=== PATIENT | male | born 1940 | race Caucasian/White ===

== ENCOUNTER 2020-07-02 18:22 | Inpatient (IN) | payer MEDICARE, OTHER ==
[~2020-07-02] VITALS: Ht 188 cm; Wt 98.0 kg
[2020-07-02 18:32] VITALS: BP 200/96
[2020-07-02] MEDS ORDERED: BACLOFEN 10MG T10 MG PO (18:49)
[2020-07-02] MEDS ORDERED: CARVEDILOL12.5 MG PO (18:50)
[2020-07-02] MEDS ORDERED: LEVOTHYROXINE75 MCG PO (18:51)
[2020-07-02 19:24] LABS: ABSOLUTE LYMPHOCYTES 0.5 thou/uL (0.8-5.3); ABSOLUTE MONOCYTES 0.6 thou/uL (0.0-1.2); ABSOLUTE NEUTROPHILS 3.8 thou/uL (1.6-8.1); BASOPHILS 0.5 %; EOSINOPHILS 0.4 %; HEMATOCRIT 29.7 % (42.0-52.0); HEMOGLOBIN 10.1 gm/dL (14.0-18.0); LYMPHOCYTES 10.8 %; MCH 32.2 pg (26.0-34.0); MCV 94.8 fL (80.0-100.0); MONOCYTES 12.6 %; MPV 7.5 fl. (7.2-11.1); NUCLEATED RBCS 0 /100WBC; PLATELET COUNT* 175 thou/uL (150-400); POLYS 75.7 %; RBC 3.13 mil/uL (4.50-6.00); RDW-CV 19.2 % (10.5-14.5); WBC 5.1 thou/uL (4.0-11.0)
[2020-07-02 19:34] LABS: CALCIUM 8.8 mg/dL (8.5-10.1); CREATININE 8.7 mg/dL (0.6-1.3); POTASSIUM 4.8 mmol/L (3.5-5.1)
[2020-07-02 19:35] LABS: APTT 25.6 Seconds (25.0-31.3); PROTIME 10.7 Seconds (9.20-11.50)
[2020-07-02 19:44] LABS: ALBUMIN 3.6 g/dL (3.4-5.0); TOTAL BILIRUBIN 0.4 mg/dL (<0.1-1.0)
[2020-07-02 19:51] LABS: URINE BILIRUBIN NEGATIVE (Negative); URINE BLOOD TRACE (Negative); URINE CLARITY CLEAR; URINE COLOR YELLOW; URINE GLUCOSE-RANDOM TRACE (Negative); URINE KETONES NEGATIVE (Negative); URINE LEUKOCYTES-REFLEX NEGATIVE (Negative); URINE NITRITE-REFLEX NEGATIVE (Negative); URINE PROTEIN 2+ (Negative); URINE UROBILINOGEN 0.2 E.U./dl (0.2-1.0)
[2020-07-02 19:56] LABS: SQUAMOUS 4-10 Moderate /LPF (0-3); URINE RBC 0-2 Rare /HPF (0-2); URINE WBC-REFLEX 0-5 Rare /HPF (0-5)
[2020-07-02 19:57] LABS: BACTERIA-REFLEX 1-9 Few /HPF (None Seen); CASTS None Seen /LPF (None Seen); CRYSTALS None Seen /LPF (None Seen); MUCUS None Seen strn/LPF (None Seen)
[2020-07-02 23:07] LABS: BE 3.4 mmol/L (-2 to +3); PCO2 43.9 mmHg (35.0-45.0); pH 7.426 (7.340-7.450)
[2020-07-02 23:10] LABS: PO2 140.5 mmHg (75.0-100.0)
[2020-07-02 23:27] LABS: AMMONIA 14 umol/L (11-32)
[2020-07-03 01:52] VITALS: BP 143/77
--- NOTE | 2020-07-03 11:02 | EKG ---
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 07/03/20 1102 1829 1829 Mirza Jimenez MD, [facility] /EPI
[2020-07-03] MEDS ORDERED: FAMOTIDINE 10 M10 MG PO (11:13)
[2020-07-03] MEDS ORDERED: LIPITOR40 MG PO (11:14)
[2020-07-03] MEDS ORDERED: CARVEDILOL25 MG PO (11:14)
[2020-07-03] MEDS ORDERED: ASA81BEC PO (11:14)
[2020-07-03] MEDS ORDERED: DIALYVITE 8000.8 M1 PO (11:15)
[2020-07-03] MEDS ORDERED: FEXOFENADINE-P1 EACH PO (11:15)
[2020-07-03] MEDS ORDERED: ISOSORBIDE MONO60 M1 PO (11:16)
[2020-07-03] MEDS ORDERED: PRESERVISION A1 EAC2 PO (11:17)
[2020-07-03] MEDS ORDERED: NITROSTAT0.4 M1 SUBLING (11:17)
[2020-07-03] MEDS ORDERED: RENVELA800 MG PO (11:18)
[2020-07-03] MEDS ORDERED: STIOLTO RESPIMAT4 GM INH (11:19)
[2020-07-03] MEDS ORDERED: TAMSULOSIN HCL0.4 MG PO (11:19)
[2020-07-03] MEDS ORDERED: TUMS300 MG PO (11:19)
[2020-07-03] MEDS ORDERED: ROXIFOL-D TA500 UNIT PO (11:20)
[2020-07-03 12:36] VITALS: BP 139/54
[2020-07-03 16:32] VITALS: BP 146/64
[2020-07-03 20:00] VITALS: BP 176/79
[2020-07-04] VITALS: BP 168/68
[2020-07-04 04:15] VITALS: BP 178/75
[2020-07-04 05:27] LABS: ABSOLUTE LYMPHOCYTES 0.6 thou/uL (0.8-5.3); ABSOLUTE MONOCYTES 0.6 thou/uL (0.0-1.2); ABSOLUTE NEUTROPHILS 4.7 thou/uL (1.6-8.1); BASOPHILS 0.6 %; EOSINOPHILS 0.1 %; HEMATOCRIT 34.3 % (42.0-52.0); HEMOGLOBIN 11.5 gm/dL (14.0-18.0); LYMPHOCYTES 9.9 %; MCH 32.4 pg (26.0-34.0); MCHC 33.5 g/dL (28.0-37.0); MCV 96.5 fL (80.0-100.0); MONOCYTES 10.4 %; MPV 7.3 fl. (7.2-11.1); NUCLEATED RBCS 0 /100WBC; PLATELET COUNT* 175 thou/uL (150-400); RBC 3.56 mil/uL (4.50-6.00); RDW-CV 19.6 % (10.5-14.5); WBC 5.9 thou/uL (4.0-11.0)
[2020-07-04 06:16] LABS: CALCIUM 9.5 mg/dL (8.5-10.1); CREATININE 7.5 mg/dL (0.6-1.3); POTASSIUM 4.6 mmol/L (3.5-5.1)
[2020-07-04 08:15] VITALS: BP 114/78
--- NOTE | 2020-07-04 13:25 | CON ---
[address] [address] CONSULTATION Name: QUIQUE KRAUS Room: [address] IN M.R.#: [id number] Admission: 07/02/20 Attend Phys: Valeriy Tellez MD Discharge: Date of : 44 Report #: [id number] THIS REPORT FOR: //name// cc: Sammie Lee MD, Jane T. MD ~ THIS REPORT FOR: //name// CC: Valeriy Lee DATE OF SERVICE: 07/03/2020 REASON FOR CONSULTATION: This is a consultation obtained by Dr. Tellez for end-stage renal disease to provide dialysis during the hospital stay. HISTORY OF PRESENT ILLNESS: The patient is a 79-year-old gentleman seen in the ER. He is very confused and unable to answer any questions for me. He has been sedated with Ativan and Haldol. I spoke to the patient's personally. The patient goes to hemodialysis at the [facility] under the care of Dr. Nelson. He dialyzes on a Saturday, Saturday, Saturday schedule. He dialyzed fairly well on Saturday without any complications. He has been doing fairly well except for having hiccups over the past few days and for which he was given baclofen, he took around 4-5 doses of that medication. Yesterday afternoon, his noticed he was getting more and more confused. He was brought into the hospital. According to the admission history and physical, the patient was alert and oriented at this time, but became more confused and agitated overnight and has required sedation medications. CT of the head and CT of the chest and abdomen are negative. He does not seem to have any focal signs of infection by clinical exam. His labs were also reviewed. He is not requiring significant amounts of oxygen. PAST MEDICAL HISTORY: Significant for end-stage renal disease, on hemodialysis Saturday, Saturday and Saturday schedule; hypertension; history of prostatectomy; and history of hiccups for which he required baclofen recently. HOME MEDICATIONS: The only list of medications that I have his baclofen, carvedilol, and levothyroxine. PERSONAL, SOCIAL AND FAMILY HISTORY: Reviewed. No smoking, no alcohol. REVIEW OF SYSTEMS: Apparently, no fevers, rigors or chills. He did have 2 falls recently. His reports a recent new medication baclofen. No cough, no fever, no chills. No abdominal pain, diarrhea, nausea or vomiting, etc. PHYSICAL EXAMINATION: GENERAL: He is sedated. He is having involuntary movements [place] [address] CONSULTATION Name: QUIQUE KRAUS Room: [address] IN [facility]#: [id number] Admission: 07/02/20 Attend Phys: Valeriy Tellez MD Discharge: Date of : 44 Report #: [id number] as he tries to pick on his sheet. VITAL SIGNS: His blood pressure is 143/77, his pulse rate is 59, and he has 100% saturation on 2 liters oxygen. HEENT: His mucous membranes are dry. LUNGS: Diminished, but clear. HEART: Regular S1, S2. ABDOMEN: Soft. EXTREMITIES: Show no edema. He has a left upper arm brachiobasilic graft with a good bruit to it. LABORATORY DATA: White count 5.1 and hemoglobin is 10.1. Sodium was 130, potassium 4.8, chloride 93, bicarbonate 30, BUN is 61, and creatinine is 8.7. AST and ALT normal. Alkaline phosphatase is 73. Albumin is 3.6. Urinalysis shows 2+ protein, but no signs of any significant UTI. Urine tox screen was not done. Acetone was negative. COVID is negative. Blood gas, pH 7.4, pCO2 of 43, pO2 of 140 and bicarbonate is 29. IMAGING STUDIES: CT head, CT chest and CT abdomen noncontributory. Chest x-ray shows right hilar fullness. ASSESSMENT: 1. End-stage renal disease. 2. Altered mental status, recent start of baclofen. 3. Hypothyroidism. 4. Hypertension. 5. Left upper arm brachiobasilic graft. PLAN: 1. End-stage renal disease. The patient is confused, but he also did get heavy sedation medications last night. The altered mental status presently could be secondary to the medications and possibly the effect of baclofen . 2. Baclofen is dialyseable. will arrange for urgent dialysis todayand then tomm morning on his regular scheduled time 3. Monitor closely for now. Discussed in detail with the ER and the nursing staff. <ELECTRONICALLY SIGNED> By: Norberto Santiago MD 07/04/20 1325 0822 [id number] Santiago MD /nt
--- NOTE | 2020-07-04 14:56 | EKG ---
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
[2020-07-04 20:00] VITALS: BP 191/88
[2020-07-05 04:30] VITALS: BP 197/89
[2020-07-05 05:10] LABS: ABSOLUTE BASOPHILS 0.1 thou/uL (0.0-0.2); ABSOLUTE LYMPHOCYTES 1.2 thou/uL (0.8-5.3); ABSOLUTE NEUTROPHILS 4.7 thou/uL (1.6-8.1); BASOPHILS 1.4 %; EOSINOPHILS 0.3 %; HEMATOCRIT 37.5 % (42.0-52.0); HEMOGLOBIN 12.7 gm/dL (14.0-18.0); MCH 32.6 pg (26.0-34.0); MCHC 33.9 g/dL (28.0-37.0); MCV 96.1 fL (80.0-100.0); MONOCYTES 13.9 %; MPV 7.4 fl. (7.2-11.1); NUCLEATED RBCS 0 /100WBC; PLATELET COUNT* 196 thou/uL (150-400); POLYS 67.4 %; RDW-CV 20.5 % (10.5-14.5); WBC 6.9 thou/uL (4.0-11.0)
[2020-07-05 05:13] LABS: APTT 26.6 Seconds (25.0-31.3); INR 1.1; PROTIME 11.5 Seconds (9.20-11.50)
[2020-07-05 05:14] LABS: ALBUMIN 3.7 g/dL (3.4-5.0); CALCIUM 9.4 mg/dL (8.5-10.1); CREATININE 6.8 mg/dL (0.6-1.3); POTASSIUM 4.9 mmol/L (3.5-5.1); TOTAL BILIRUBIN 0.5 mg/dL (<0.1-1.0); TOTAL PROTEIN 7.7 g/dL (6.4-8.2)
[2020-07-05 06:41] LABS: ANISOCYTOSIS 1+; PLATELET ESTIMATE ADEQUATE
[2020-07-05 08:00] VITALS: BP 218/101
[2020-07-05 13:33] VITALS: BP 129/72
[2020-07-05 13:43] LABS: CSF CLARITY CLEAR; CSF COLOR COLORLESS; VOLUME 8 ml
[2020-07-05 13:53] LABS: CSF GLUCOSE 74 mg/dl (40-70); CSF PROTEIN 142.8 mg/dl (15-45)
[2020-07-05 14:18] LABS: CSF RBC 18 /mm3; CSF WBC 3 /mm3 (0-10)
[2020-07-05 16:00] VITALS: BP 173/85
[2020-07-05 20:00] VITALS: BP 184/80
[2020-07-06] VITALS: BP 159/71
[2020-07-06 04:00] VITALS: BP 182/76
[2020-07-06 05:14] LABS: ABSOLUTE LYMPHOCYTES 0.9 thou/uL (0.8-5.3); ABSOLUTE MONOCYTES 0.8 thou/uL (0.0-1.2); ABSOLUTE NEUTROPHILS 4.1 thou/uL (1.6-8.1); BASOPHILS 0.8 %; EOSINOPHILS 0.6 %; HEMATOCRIT 33.3 % (42.0-52.0); HEMOGLOBIN 11.2 gm/dL (14.0-18.0); LYMPHOCYTES 14.8 %; MCH 32.2 pg (26.0-34.0); MCHC 33.6 g/dL (28.0-37.0); MCV 96.1 fL (80.0-100.0); MONOCYTES 13.7 %; MPV 7.5 fl. (7.2-11.1); NUCLEATED RBCS 0 /100WBC; PLATELET COUNT* 177 thou/uL (150-400); POLYS 70.1 %; RBC 3.46 mil/uL (4.50-6.00); RDW-CV 20.7 % (10.5-14.5); WBC 5.9 thou/uL (4.0-11.0)
[2020-07-06 05:30] LABS: CALCIUM 9.2 mg/dL (8.5-10.1); POTASSIUM 5.1 mmol/L (3.5-5.1)
[2020-07-06 05:36] LABS: CREATININE 9.6 mg/dL (0.6-1.3)
[2020-07-06 05:46] LABS: ALBUMIN 3.4 g/dL (3.4-5.0); CREATININE 9.7 mg/dL (0.6-1.3); TOTAL BILIRUBIN 0.5 mg/dL (<0.1-1.0); TOTAL PROTEIN 6.8 g/dL (6.4-8.2)
[2020-07-06 08:00] VITALS: BP 188/80
[2020-07-06 08:03] LABS: ANISOCYTOSIS 2+; PLATELET ESTIMATE ADEQUATE; POLYCHROMASIA 1+
[2020-07-06 16:00] VITALS: BP 156/76
[2020-07-06 19:40] VITALS: BP 159/80
[2020-07-07] VITALS (7 sets, daily range): BP systolic 101–125; BP diastolic 50–66
--- NOTE | 2020-07-07 18:46 | EEG ---
[address] [address] EEG STUDY REPORT Name: QUIQUE KRAUS Room: [address] IN M.R.#: [id number] Admission: 07/02/20 Attend Phys: Valeriy Tellez MD Discharge: Date of : 44 Report #: [id number] THIS REPORT FOR: //name// CC: Valeriy Arellanomundo DATE OF SERVICE: 07/04/2020 TECHNIQUE: This patient's EEG was done by placing the electrode by standard 10-20 system of electrode placement. Both referential and sequential montages were used for recording. Background activity in this patient is very disorganized and poorly formed that goes around 7 Hz and 30 microvolt. A sharper activity appeared to be present, sometime it is frontally predominant and other time it does not appear to be. IMPRESSION: This is a severely abnormal EEG consistent with encephalopathy. Superimposed seizures cannot be excluded. Finding is nonspecific and therefore, clinical correlation is recommended. I called the patient's again. I discussed with her the EEG. I discussed with her that repeat CT is also okay. I also discussed with her that the temperature is 101 degrees now. I recommended spinal tap. She did not want to proceed with the spinal tap, but subsequently she said she agreed with it and she will be in the hospital tetryl blender operator and let the nurses know if they want to proceed with spinal tap or not. I called Dr. White, the hospitalist clinical nutritionist. I discussed the patient with him. I discussed with him that this patient needs an ID consult, but no ID physician comes here. The option is to transfer him to a facility where ID is there of start him on DIE PRESSER penetrating antibacterial and if cleared by Nephrology, on IV acyclovir. He is going to look into that and take care of that. I did give him one dose of Keppra because there may be some seizure activity there. I also gave him thiamine. I did discuss with the that she has an option of getting transferred to a facility where Infectious Disease facilities are available and she said she will think about it. I think the patient's encephalopathy is because of infection rather than any medication overdose. I did ask them to hold the heparin, so that spinal tap can be done. More than 35 minutes of time was spent taking care of this patient today and majority was spent counseling and coordinating. <ELECTRONICALLY SIGNED> By: Dominic Mejia MD 07/07/206 24 38Dominic Mejia MD /nt
[2020-07-08 04:00] VITALS: BP 133/86; BP 137/84
[2020-07-08 06:03] LABS: CALCIUM 8.1 mg/dL (8.5-10.1); CREATININE 9.9 mg/dL (0.6-1.3); POTASSIUM 4.4 mmol/L (3.5-5.1)
[2020-07-08 08:58] VITALS: BP 137/84
[2020-07-08 09:52] VITALS: BP 137/84
[2020-07-08 11:35] VITALS: BP 137/84
[2020-07-08 11:42] VITALS: BP 98/52
[2020-07-09 12:06] LABS: HSV 1 DNA Negative (Negative); HSV 2 DNA Negative (Negative)
--- NOTE | 2020-07-14 10:36 | EEG ---
[address] [address] EEG STUDY REPORT Name: QUQIUE KRAUS Room: [address] IN M.R.#: [id number] Admission: 07/02/20 Attend Phys: Valeriy Tellez MD Discharge: 07/08/20 Date of : 44 Report #: [id number] THIS REPORT FOR: //name// CC: Valeriy Tellez [facility] DATE OF SERVICE: 07/07/2020 TECHNIQUE: This patient's EEG was done by placing the electrode by standard 10-20 system of electrode placement. Both referential and sequential montages were used for recording. Background activity in this patient's EEG is about 7-8 Hz and 30 microvolts. The patient became drowsy and that is associated with bilateral slowing and vertex sharp waves. Photic stimulation is unremarkable. Throughout the record, no active epileptiform activity was noticed. IMPRESSION: This patient's EEG is remarkably improved since last time, but it still is not back to normal and still demonstrates slowing, which is a nonspecific finding, which can occur with encephalopathy, effect of psychotropic medication, dementia, etc. Clinical correlation is recommended. <ELECTRONICALLY SIGNED> By: Dominic Mejia MD 07/14/20 1036 1838 19Dominic Mejia MD /nt
== END 2020-07-08 13:21 | disposition home health service (06) | DRG 91 ==
LOC: M.ERS 18:22 → EDBD 18:22 → M.2W 21:47 → M.TBA-ER 21:47 → M.2W 07-03 16:20
PROVIDERS: Emergency Medicine Emergency Medical Services; Internal Medicine Nephrology; Personal Emergency Response Attendant; Psychiatry & Neurology Neuromuscular Medicine; ADMIT Internal Medicine; ATTEND Internal Medicine
DX: G92 Toxic encephalopathy (principal); N18.6 End stage renal disease; I12.0 Hypertensive chronic kidney disease with stage 5 chronic kidney disease or end stage renal disease; F10.239 Alcohol dependence with withdrawal, unspecified; T42.8X5A Adverse effect of antiparkinsonism drugs and other central muscle-tone depressants, initial encounter; E03.9 Hypothyroidism, unspecified; Y90.9 Presence of alcohol in blood, level not specified; Z20.828 Contact with and (suspected) exposure to other viral communicable diseases; Z85.46 Personal history of malignant neoplasm of prostate; Z85.118 Personal history of other malignant neoplasm of bronchus and lung; Z99.2 Dependence on renal dialysis; Z85.528 Personal history of other malignant neoplasm of kidney; Z79.899 Other long term (current) drug therapy; Z72.89 Other problems related to lifestyle; Y92.89 Other specified places as the place of occurrence of the external cause

== ENCOUNTER 2021-04-11 20:12 | Observation (INO) | payer OTHER, MEDICARE ==
[~2021-04-11] VITALS: Ht 188 cm; Wt 102.1 kg
--- NOTE | ~2021-04-11 | CON ---
[address] [address] CONSULTATION Name: QUIQUE KRAUS Room: [address] IN M.R.#: [id number] Admission: 04/12/21 Attend Phys: Sergey Billingsley Discharge: 04/12/21 Date of : 44 Report #: [id number] THIS REPORT FOR: cc: Sammie Lee MD, Jane T. MD Vasudeva, Gisselle SAINI ~ DOC #: [id number] Gisselle Prince MD DATE OF CONSULTATION: 04/12/2021 NEPHROLOGY CONSULTATION CONSULTING PHYSICIAN: Pete Alberto DO REASON FOR NEPHROLOGY CONSULTATION: Hyperkalemia; ESRD, for dialysis needs. REASON FOR ADMISSION: Hyperkalemia. HISTORY OF PRESENT ILLNESS: This is a 80-year-old male who goes to [facility] has ESRD and he is on hemodialysis every Saturday, Saturday and Saturday, has a left arm AV graft, he is under the care of Dr. Nelson, came in because he had some labs drawn at [place] and he was found to have a potassium of 6.9 there. The patient apparently has been running high potassium for a while. His outpatient potassiums have also been running between 5.9-6 and he is not on any Veltassa. He is due for dialysis today. He otherwise has no complaints. ALLERGIES: LISINOPRIL, BACLOFEN. REVIEW OF SYSTEMS: As mentioned in history of present illness, otherwise 10-point review of systems are negative. PAST MEDICAL AND SURGICAL HISTORY: Includes ESRD, on hemodialysis Saturday, Saturday, Saturday; hypertension; prostatectomy; hiccups; left arm AV graft. FAMILY HISTORY: Reviewed and noncontributory in this situation. HOME MEDICATIONS: Include fexofenadine, isosorbide, PreserVision drops, Renvela, Stiolto inhalation, Tums, Roxifol, levothyroxine, Coreg, Norvasc, aspirin 81 mg a day and nitroglycerin. PHYSICAL EXAMINATION: VITAL SIGNS: His blood pressure is 160/75, pulse ox is 98% on room air, temperature is 36.4, pulse rate is 63, respiratory rate is 16. GENERAL: He is awake, alert and oriented x 3. HEAD AND EYES: Atraumatic and normocephalic. [place] [address] CONSULTATION Name: QUIQUE KRAUS Room: [address] IN [facility]#: [id number] Admission: 04/12/21 Attend Phys: Sergey Billingsley Discharge: 04/12/21 Date of : 44 Report #: [id number] EARS, NOSE, THROAT: Normal ears and nose. Mucous membranes are moist. NECK: There is no JVD. CHEST: Shows bilaterally diminished breath sounds anteriorly. No crackles or wheezing. CARDIOVASCULAR SYSTEM: S1, S2 normal. No murmurs. ABDOMEN: Soft, nondistended, nontender. Bowel sounds are present. LOWER EXTREMITIES: There is no lower extremity edema. He has an AV graft, left arm, good bruit. NEUROLOGICAL FUNCTION: Grossly intact. PSYCHIATRIC: Mood and affect seemed to be normal. LABORATORY DATA: Hemoglobin was 9.7, potassium was 6.5. Other labs were reviewed. IMAGING: There is no imaging to be reviewed. ASSESSMENT AND PLAN: 1. End-stage renal disease, on hemodialysis every Saturday, Saturday and Saturday. Last dialysis was Saturday without any complications. 2. Anemia of end-stage renal disease. Hemoglobin 9.7 on admission. 3. History of chronic hyperkalemia. 4. Secondary hyperparathyroidism. 5. Hypothyroidism. 6. Hypertension. PLAN: 1. I have started him on Veltassa to help with his chronic hyperkalemia, he will get dialyzed today, his outpatient dry weight is 96.5 and we will try to bring him down to his dry weight. 2. Erythropoietin has been ordered to help with anemia. 3. We will continue to follow for dialysis needs. Thank you for this consultation. Discussed with the patient and the patient's nurse as well as dialysis nurse. MD Neri/JONATHAN/MARCELA By: [id number] Prince MD /nt
[~2021-04-11 20:12] MED LIST: ASA81BEC PO; BACLOFEN 10MG T10 MG PO; CARVEDILOL12.5 MG PO; CARVEDILOL25 MG PO; DIALYVITE 8000.8 M1 PO; FAMOTIDINE 10 M10 MG PO; FEXOFENADINE-P1 EACH PO; ISOSORBIDE MONO60 M1 PO; LEVOTHYROXINE75 MCG PO; LIPITOR40 MG PO; NITROSTAT0.4 M1 SUBLING; PRESERVISION A1 EAC2 PO; RENVELA800 MG PO; ROXIFOL-D TA500 UNIT PO; STIOLTO RESPIMAT4 GM INH; TAMSULOSIN HCL0.4 MG PO; TUMS300 MG PO
[2021-04-11 20:25] VITALS: BP 168/71
[2021-04-11 21:21] LABS: ABSOLUTE EOSINOPHILS 0.1 thou/uL (0.0-0.7); ABSOLUTE LYMPHOCYTES 0.6 thou/uL (0.8-5.3); ABSOLUTE MONOCYTES 0.8 thou/uL (0.0-1.2); ABSOLUTE NEUTROPHILS 3.7 thou/uL (1.6-8.1); BASOPHILS 0.5 %; EOSINOPHILS 1.2 %; HEMATOCRIT 28.6 % (42.0-52.0); HEMOGLOBIN 9.7 gm/dL (14.0-18.0); LYMPHOCYTES 11.6 %; MCH 31.8 pg (26.0-34.0); MCV 93.6 fL (80.0-100.0); MONOCYTES 14.8 %; MPV 7.2 fl. (7.2-11.1); NUCLEATED RBCS 0 /100WBC; PLATELET COUNT* 152 thou/uL (150-400); POLYS 71.9 %; RBC 3.05 mil/uL (4.50-6.00); RDW-CV 17.7 % (10.5-14.5); WBC 5.2 thou/uL (4.0-11.0)
[2021-04-11 21:30] LABS: CALCIUM 8.5 mg/dL (8.5-10.1); CREATININE 9.4 mg/dL (0.6-1.3)
[2021-04-11 21:35] LABS: ALBUMIN 3.5 g/dL (3.4-5.0); TOTAL BILIRUBIN 0.3 mg/dL (<0.1-1.0); TOTAL PROTEIN 6.7 g/dL (6.4-8.2)
[2021-04-11 21:42] LABS: POTASSIUM 6.1 mmol/L (3.5-5.1)
[2021-04-11 23:47] VITALS: BP 151/70
[2021-04-12 00:09] VITALS: BP 163/73
[2021-04-12] MEDS ORDERED: COREG6.25 MG PO (00:15)
[2021-04-12] MEDS ORDERED: NORVASC 2.5 MG2.5 M1 PO (00:16)
[2021-04-12 08:00] VITALS: BP 160/75
--- NOTE | 2021-04-12 09:32 | EKG ---
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: : 1940 Requested By: Laura Kramer Order Number: [id number] MD: Fransisco Zapien Measurements Intervals [place] Rate: 75 P: 35 VA: 213 QRS: -62 QRSD: 171 T: 14 QT: 441 QTc: 493 Interpretive Statements Sinus rhythm Borderline prolonged [place] interval Probable left atrial enlargement RBBB and LAFB Compared to ECG 07/02/2020 20:16:36 No significant changes Electronically Signed On 04-12-2021 9:32:21 CDT by Fransisco Zapien [email or web address] <ELECTRONICALLY SIGNED> By: Fransisco Zapien MD, [facility] 04/12/21931 25 25 Fransisco Zapien MD, [facility] /EPI
[2021-04-12 13:17] VITALS: BP 126/81
[2021-04-12 17:45] VITALS: BP 126/81
[2021-04-12 18:05] LABS: CALCIUM 9.5 mg/dL (8.5-10.1); CREATININE 4.7 mg/dL (0.6-1.3); POTASSIUM 4.3 mmol/L (3.5-5.1)
== END 2021-04-12 18:27 | disposition home or self-care (01) ==
LOC: M.ERS 20:12 → M.TBA-ER 22:17 → M.2W 22:17
PROVIDERS: Internal Medicine; Personal Emergency Response Attendant; ADMIT Internal Medicine; ATTEND Internal Medicine
DX: E87.5 Hyperkalemia (principal); I12.0 Hypertensive chronic kidney disease with stage 5 chronic kidney disease or end stage renal disease; N18.6 End stage renal disease; Z20.822 Contact with and (suspected) exposure to COVID-19; Z79.82 Long term (current) use of aspirin; Z79.899 Other long term (current) drug therapy; Z99.2 Dependence on renal dialysis

== ENCOUNTER 2021-04-29 16:37 | Emergency (ER) | payer OTHER, MEDICARE ==
[~2021-04-29] VITALS: Ht 188 cm; Wt 95.3 kg
[~2021-04-29 16:37] MED LIST changes: +COREG6.25 MG PO; +NORVASC 2.5 MG2.5 M1 PO
[2021-04-29 17:16] VITALS: BP 152/71
== END 2021-04-29 17:17 | disposition home or self-care (01) ==
LOC: M.ERS 16:37
DX: H11.31 Conjunctival hemorrhage, right eye (principal); I10 Essential (primary) hypertension; Z88.8 Allergy status to other drugs, medicaments and biological substances; Z79.82 Long term (current) use of aspirin; Z79.899 Other long term (current) drug therapy; Z90.89 Acquired absence of other organs